=== PATIENT | female | born 1960 | race Two or more races ===

== ENCOUNTER 2021-12-28 19:28 | Emergency (ER) | payer BC ==
[~2021-12-28] VITALS: Ht 167.6 cm; Wt 108.9 kg
[2021-12-28 19:54] VITALS: BP_SYST 154
--- NOTE | 2021-12-28 19:54 | NUR ---
Patient to ER bed 7 for evaluation. Side rails up.
[2021-12-28] MEDS ORDERED: MECLIZINE HCL 25 MG TABLET (ANITVERT) PO ONE (20:30)
[2021-12-28] MEDS ORDERED: METOCLOPRAMIDE HCL 10 MG/2 ML VIAL IVP ONE (20:30)
[2021-12-28 21:10] LABS: BASOPHILS # (AUTO) 0.1 K/uL (0.0-0.2); BASOPHILS % (AUTO) 0.6 % (0.0-2.0); EOSINOPHILS # (AUTO) 0.2 K/uL (0.0-0.4); EOSINOPHILS % (AUTO) 1.5 % (0.0-4.0); HEMATOCRIT 41.2 % (36-48); HEMOGLOBIN 13.8 g/dL (12.0-16.0); LYMPHOCYTES % (AUTO) 8.8 % (20.5-51.5); MEAN CORPUSCULAR HEMOGLOBIN 28 pg (27-31); MEAN CORPUSCULAR HGB CONC 34 % (32-36); MEAN CORPUSCULAR VOLUME 85 fL (79.0-98.0); MONOCYTES # (AUTO) 0.5 K/uL (0.0-1.0); NEUTROPHILS % (AUTO) 85.1 % (40.0-70.0); PLATELET COUNT (AUTO) 215 K/uL (130-430); RED BLOOD CELL COUNT(AUTO) 4.86 MIL/uL (4.2-6.2); RED CELL DISTRIBUTION WIDTH 14.6 % (9.0-15.0); WHITE BLOOD COUNT (AUTO) 11.8 K/uL (4.8-10.8)
[2021-12-28 21:19] LABS: ANION GAP 9 (5-15); CALCIUM 9.6 mg/dL (8.4-11.0); CHLORIDE 104 mmol/L (98-107); CREATININE 0.86 mg/dL (0.55-1.30); GLUCOSE 102 mg/dL (70-99); UREA NITROGEN, BLOOD 12 mg/dL (8-21)
[2021-12-28 21:28] LABS: ALANINE AMINOTRANSFERASE 38 U/L (12-78); ASPARTATE AMINOTRANSFERASE 30 U/L (10-37); TOTAL BILIRUBIN 0.5 mg/dL (0.0-1.0)
[2021-12-28 21:32] LABS: GFR AFRICAN AMERICAN 86 mL/min (>90)
--- NOTE | 2021-12-28 22:00 | NUR ---
Pt bib self from home CC nausea multiple episodes of vomiting and dizziness since 1300, Pt denies SOB, denies neuro defecit.
--- NOTE | 2021-12-28 22:44 | NUR ---
ER at bedside examining patient.
--- NOTE | 2021-12-29 01:34 | NUR ---
ER at bedside examining patient.
[2021-12-29] MEDS ORDERED: CLOPIDOGREL BISULFATE 75 MG TABLET PO ONE (01:45)
--- NOTE | 2021-12-29 01:53 | NUR ---
Report given to Anna LANE
[2021-12-29 05:20] VITALS: BP_SYST 125
--- NOTE | 2021-12-29 05:22 | NUR ---
PATIENT D/C HOME WITH FAMILY, PATIENT STABLE AND AMBULATED OUT OF THE UNIT, GAIT STEADY.
== END 2021-12-29 03:00 | disposition home or self-care (01) ==
LOC: SED 19:28
DX: G45.9 Transient cerebral ischemic attack, unspecified (principal); R42 Dizziness and giddiness; R11.2 Nausea with vomiting, unspecified; R51.9 Headache, unspecified; Z88.0 Allergy status to penicillin; Z79.899 Other long term (current) drug therapy
CPT/HCPCS: 99285; 70450; 71045; 80053; 82550; 85025; 84484; 36415; 93005; 76376; 96374; J8597; J2765

== ENCOUNTER 2022-07-02 10:07 | Emergency (ER) | payer BC ==
[~2022-07-02] VITALS: Ht 167.6 cm; Wt 110.7 kg
[2022-07-02 10:07] VITALS: BP_SYST 145
--- NOTE | 2022-07-02 10:07 | NUR ---
BROUGHT BACK TO BED #2 AND TRIAGED. REPORT GIVEN TO TABBY
--- NOTE | 2022-07-02 10:10 | NUR ---
PT BIB SELF AWAKE AND ALERT AOX4, NO SOB OR DISTRESS. PT C/O ABDOMINAL PAIN STARTING TODAY AND DIAHREA FOR X7 DAYS. PT NAUSEA, DENIES VOMIT. PY HAS HX OF HTN.
--- NOTE | 2022-07-02 10:15 | NUR ---
MD DR BLANKENSHIP AT BEDSIDE
[2022-07-02] MEDS ORDERED: NACL 0.9% 1,000 ML IV ONE (10:45)
[2022-07-02] MEDS ORDERED: DICYCLOMINE HCL 20 MG/2 ML AMP IM ONE (11:00)
[2022-07-02 11:13] LABS: BASOPHILS # (AUTO) 0.1 K/uL (0.0-0.2); BASOPHILS % (AUTO) 0.8 % (0.0-2.0); EOSINOPHILS % (AUTO) 35.5 % (0.0-4.0); HEMATOCRIT 41.1 % (36-48); HEMOGLOBIN 13.3 g/dL (12.0-16.0); LYMPHOCYTES # (AUTO) 1.3 K/uL (1.0-5.5); LYMPHOCYTES % (AUTO) 9.3 % (20.5-51.5); MEAN CORPUSCULAR HEMOGLOBIN 28 pg (27-31); MEAN CORPUSCULAR HGB CONC 32 % (32-36); MEAN CORPUSCULAR VOLUME 87 fL (79.0-98.0); MONOCYTES # (AUTO) 0.5 K/uL (0.0-1.0); MONOCYTES % (AUTO) 3.8 % (1.7-9.3); NEUTROPHILS # (AUTO) 7.1 K/uL (1.8-7.7); NEUTROPHILS % (AUTO) 50.6 % (40.0-70.0); PLATELET COUNT (AUTO) 197 K/uL (130-430); RED BLOOD CELL COUNT(AUTO) 4.72 MIL/uL (4.2-6.2); WHITE BLOOD COUNT (AUTO) 14.1 K/uL (4.8-10.8)
[2022-07-02 11:24] LABS: CALCIUM 8.6 mg/dL (8.4-11.0); CREATININE 0.82 mg/dL (0.55-1.30)
[2022-07-02 11:29] LABS: ALBUMIN 3.3 g/dL (3.4-4.8); TOTAL BILIRUBIN 0.6 mg/dL (0.0-1.0)
[2022-07-02 12:09] LABS: BILIRUBIN,URINE NEGATIVE (NEGATIVE); BLOOD, URINE NEGATIVE (NEGATIVE); COLOR,URINE YELLOW (YELLOW); GLUCOSE,URINE NEGATIVE (NEGATIVE); KETONES,URINE NEGATIVE (NEGATIVE); LEUKOCYTE ESTERASE ,URINE 2+ (NEGATIVE); NITRITE, URINE NEGATIVE (NEGATIVE); PROTEIN URINE NEGATIVE (NEGATIVE); UROBILINOGEN,URINE 0.2 (0.2-1.0)
[2022-07-02 12:12] LABS: CLARITY/URINE SLIGHTLY HAZY (CLEAR)
[2022-07-02 12:19] LABS: BACTERIA,URINE MODERATE /HPF (None Seen); RBC,URINE 0-3 /HPF (0-3)
--- NOTE | 2022-07-02 12:30 | NUR ---
Patient given written and verbal discharge instructions and verbalizes understanding. ER MD DR BLANKENSHIP discussed with patient the results and treatment provided. Patient in stable condition. ID arm band removed. IV catheter removed intact and dressing applied, no active bleeding. Rx of DICYCLOMINE given. Patient educated on pain management and to follow up with PMD. Pain Scale 4/10. Opportunity for questions provided and answered. Medication side effect fact sheet provided.
[2022-07-02] MEDS ORDERED: NITR-85 PO (12:31)
[2022-07-02] MEDS ORDERED: DICY10CA13 PO (12:31)
[2022-07-02 14:02] VITALS: BP_SYST 145
== END 2022-07-02 12:30 | disposition home or self-care (01) ==
LOC: SED 10:07
DX: N39.0 Urinary tract infection, site not specified (principal); R19.7 Diarrhea, unspecified; R74.8 Abnormal levels of other serum enzymes; R10.9 Unspecified abdominal pain; I10 Essential (primary) hypertension; Z88.0 Allergy status to penicillin; Z79.899 Other long term (current) drug therapy
CPT/HCPCS: 99283; 96360; 80053; 81000; 83690; 85025; 87086; 36415; 96372; J0500; J7030